=== PATIENT | male | born 2005 | race Caucasian/White ===

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

== ENCOUNTER 2024-04-25 08:52 | Emergency (ER) | payer OTHER, MEDICAID ==
[~2024-04-25] VITALS: Ht 160 cm; Wt 84.7 kg
[2024-04-25 09:38] VITALS: TEMP 99.5
[2024-04-25 09:43] VITALS: BP 134/78
[2024-04-25 10:00] VITALS: PULSE 99; RESP 18; O2SAT 98
[2024-04-25] MEDS ORDERED: IBUP-1456 PO (10:06)
[2024-04-25] MEDS ORDERED: AMOX875T3 PO (10:06)
== END 2024-04-25 10:25 | disposition home or self-care (01) ==
LOC: ER 08:52
DX: H65.192 Other acute nonsuppurative otitis media, left ear (principal); Z79.899 Other long term (current) drug therapy

== ENCOUNTER 2025-03-27 22:24 | Emergency (ER) | payer OTHER, MEDICAID ==
[~2025-03-27] VITALS: Ht 157.5 cm; Wt 79.5 kg
[~2025-03-27 22:24] MED LIST: AMOX875T3 PO; IBUP-1456 PO
[2025-03-27] MEDS: IPRATROPIUM BROM 0.5 MG/2.5ML INH SOL NEB ONE (23:14)
[2025-03-27] MEDS: ALBUTEROL SULF 2.5 MG/0.5ML(0.5%) NEB SOLN NEB ONE (23:14)
--- NOTE | 2025-03-27 23:59 | ED.PDOC ---
History of Present Illness HPI Comments 20-year-old male who presents to the emergency department with chest tightness ongoing since this morning. Patient reports he was exposed to some particulate dust at work while taking. He has a history of asthma. Had an asthma inhaler in the past 6-7 months. He used he will epinephrine bronchodilator with mild relief of his symptoms today. He has some shortness of breath. He is denying any chest pain, lightheadedness, dizziness. He has sore throat, throat irritation and cough. No Rhinorrhea, congestion, headache, blurred vision. REVIEW OF SYSTEMS: General: No fever, no chills, or fatigue HEENT: Positive sore throat, no earache, no congestion, no neck pain. Cardiac: No chest pain. No palpitations. Lungs: Positive shortness of breath, positive cough. GI: No nausea, no vomiting, no diarrhea, no constipation, no abdominal pain : No dysuria, frequency, or urgency. No hematuria. Musculoskeletal: Positive right wrist pain Skin: No rash, no itching. Neuro: No headache, no dizziness, no weakness PHYSICAL EXAM: General: Awake, alert and oriented. No acute distress. Skin: Skin in warm, dry and intact. Appropriate color for ethnicity. HEENT: The head is normocephalic and atraumatic. Conjunctivae are clear without exudates or hemorrhage. Sclera is non-icteric. EOM are intact. No signs of nystagmus. Eyelids are normal in appearance without swelling or lesions. Oral mucosa is pink and moist Neck: The neck is supple with normal range of motion. No JVD. Cardiac: Heart rate and rhythm are normal. No murmurs, gallops, or rubs are auscultated. Respiratory: No signs of respiratory distress. Lung sounds are clear in all lobes bilaterally without rales, rhonchi, or wheezes. Abdominal: Abdomen is soft, non-tender without distention, guarding or rigidity. Bowel sounds are present and normoactive in all four quadrants. Extremities: Upper and lower extremities are atraumatic in appearance without deformity or edema. Neurological: The patient is awake, alert and oriented to person, place, and time with normal speech. Speech is clear. There is no facial asymmetry. Normal gait Psychiatric: Appropriate mood and affect. Good judgement and insight. Chief Complaint: Asthma Time Seen by MD: 22:36 Primary Care Provider: UNK Allergies: Coded Allergies: NO KNOWN ALLERGIES (Unverified , 01/14/22) Home Meds Active Scripts Prednisone (Prednisone) 20 Mg Tab, 20 MG PO DAILY for 4 Days, #4 MG Prov:EMELI BUCKNER MD 03/28/25 Albuterol Sulfate (VENTOLIN MDI) 90 Mcg Ih, 90 MCG IN Q4HPRN PRN for 5 Days, #1 INH Prov:EMELI BUCKNER MD 03/28/25 Ibuprofen (Ibuprofen) 800 Mg Tab, 1 TAB PO TID, #24 TAB Prov:ELIECER DUNCAN 04/25/24 Amoxicillin Trihydrate (Amoxicillin) 875 Mg Tab, 1 TAB PO BID, #20 TAB Prov:ELIECER DUNCAN 04/25/24 Mode of Arrival: Ambulatory Past Medical History PAST MEDICAL HISTORY: Denies Surgical History: Denies all surgeries Family History Family History: Reviewed,noncontributory to illness Social History Smoker: Non-Smoker Alcohol: Denies ETOH Use Drugs: Denies Drug Use Was a procedure done? Was a procedure done?: No Differential Dx Considerations may include: Differential diagnoses considered include acute ischemic coronary syndrome, aortic dissection, cardiac tamponade, mediastinitis, pulmonary embolus, pneumothorax, tension pneumothorax, esophageal rupture, coronary artery vasospasm, myocarditis, pericarditis, pneumonia, pulmonary edema, esophageal tear, pancreatitis, aortic stenosis, dilated cardiomyopathy, hypertrophic cardiomyopathy, mitral valve prolapse, malignancy, pleuritis, pneumomediastinum, primary pulmonary hypertension, cholecystitis, esophageal spasm, esophagus, gastritis, GERD, peptic ulcer disease, costochondritis, fibromyalgia, rib fracture, herpes zoster, radicular syndromes, thoracic outlet syndrome, somatization. X-Ray, Labs, Meds, VS Vital Signs Date Time Temp Pulse Resp B/P (MAP) Pulse Ox O2 Delivery O2 Flow Rate FiO2 03/28/25 02:34 16 96 Room Air* 0 03/28/25 02:15 94 Room Air* 0 03/28/25 02:15 97.8 78 18 129/78 (95) 94 97.8 03/27/25 23:18 16 96 Room Air* 0 03/27/25 22:25 98.2 76 20 133/77 98 98.2 Time of 1ST Reevaluation: 23:57 Reevaluation 1ST: Improved Patient Education/Counseling: Need For Follow Up Family Education/Counseling: No Family Present SEPSIS Sepsis Screen Date sepsis recognized/suspect: Mar 27, 2025 Time Sepsis recognized/suspect: 2228 Recent Procedure: No On Antibiotic Therapy: No Respiratory Rate >20: No Heart Rate >90: No Temp<36 C (96.8 F) or >38.3 C: No SBP <90 or MAP <65 mmHG: No New Acute Mental Status Change: No Is the patient on CPAP, BIPAP,: No Physician Orders Chest Xray 1 View (03/27/25 22:46) Rapid Strep Screen - Throat (03/27/25 23:48) Vital Signs Date Time Temp Pulse Resp B/P (MAP) Pulse Ox O2 Delivery O2 Flow Rate FiO2 03/28/25 02:34 16 96 Room Air* 0 21 03/28/25 02:15 94 Room Air* 0 21 03/28/25 02:15 97.8 78 18 129/78 (95) 94 97.8 03/27/25 23:18 16 96 Room Air* 0 21 03/27/25 22:25 98.2 76 20 133/77 98 98.2 Departure 1 Departure Time of Disposition: 23:57 Impression: Primary Impression: Chest tightness Additional Impression: Asthma Disposition: HOME / SELF CARE / HOMELESS Condition: Stable Additional Instructions: ED DISCHARGE INSTRUCTIONS Instructions: Please read all instructions provided in this packet carefully. Although you have been discharged from the Emergency Department, this does not mean that you have a "clean bill of health". No definitive diagnosis for your symptoms has been made today. It is possible that you are in the process of developing a serious illness. This is why you must return to the ED without fail if any new or worsening symptoms (especially if your symptoms include chest pain, trouble breathing, abdominal pain, fever, headache, confusion, trouble seeing, or trouble walking) It is also very important that you see a primary care provider (PCP) within the next 3-5 days to follow up. If you are unable to get an appointment, return to the ED for re-evaluation. SHORTNESS OF BREATH EDUCATION Shortness of breath has many causes. Sometimes conditions such as anxiety can lead to shortness of breath. Some people get mild shortness of breath when they exercise. Trouble breathing also can be a symptom of a serious problem, such as asthma, lung disease, emphysema, heart problems, and pneumonia. If your shortness of breath continues, you may need tests and treatment. Watch for any changes in your breathing and other symptoms. Follow-up care is a walker part of your treatment and safety. Be sure to make and go to all appointments, and call your doctor if you are having problems. It's also a good idea to know your test results and keep a list of the medicines you take. How can you care for yourself at home? Do not smoke or allow others to smoke around you. If you need help quitting, talk to your doctor about stop-smoking programs and medicines. These can increase your chances of quitting for good. Get plenty of rest and sleep. Take your medicines exactly as prescribed. Call your doctor if you think you are having a problem with your medicine. Find healthy ways to deal with stress. Exercise daily. Get plenty of sleep. Eat regularly and well. When should you call for help? Call 911 anytime you think you may need emergency care. For example, call if: You have severe shortness of breath. You have symptoms of a heart attack. These may include: Chest pain or pressure, or a strange feeling in the chest. Sweating. Shortness of breath. Nausea or vomiting. Pain, pressure, or a strange feeling in the back, neck, jaw, or upper belly or in one or both shoulders or arms. Lightheadedness or sudden weakness. A fast or irregular heartbeat. After you call 911, the radiophone operator may tell you to chew 1 adult-strength or 2 to 4 low-dose aspirin. Wait for an ambulance. Do not try to drive yourself. Call your doctor now or seek immediate medical care if: Your shortness of breath gets worse or you start to wheeze. Wheezing is a high- pitched sound when you breathe. You wake up at night out of breath or have to prop your head up on several pillows to breathe. You are short of breath after only light activity or while at rest. Watch closely for changes in your health, and be sure to contact your doctor if: You do not get better over the next 1 to 2 days. Credits for Shortness of Breath: Care Instructions Current as of: March 27, 2024 Author: [employer] Staff e-Prescriptions Prednisone (Prednisone) 20 Mg Tab 20 MG PO DAILY for 4 Days, #4 MG Prov: EMELI BUCKNER MD 03/28/25 Albuterol Sulfate (VENTOLIN MDI) 90 Mcg Ih 90 MCG IN Q4HPRN PRN for 5 Days, #1 INH Prov: EMELI BUCKNER MD 03/28/25 Comments 20-year-old male with history of asthma and shortness of breath after exposure to dust. Patient improved with bronchodilator in the ED. CXR shows no acute process. Patient improved at time of discharge. Patient has not been hypoxic, in respiratory distress or dyspneic during the ED observation. Patient able to ambulate without difficulty. Patient felt stable for discharge to follow up with PCP promptly. Patient advised to return to the ED with any new, worsening or concerning symptoms or inability to follow up with PCP. Critical Care Note Critical Care Time?: No Stability Stability form required: No EMELI BUCKNER MD Mar 27, 2025 23:59
--- NOTE | 2025-03-28 00:40 | DVH ---
CHEST RADIOGRAPH Indication: asthma exacerbation Technique: Single frontal view of the chest was obtained COMPARISON: None FINDINGS: Lines and Tubes: None Lungs: Clear Pleura: No effusion. No pneumothorax. Cardiomediastinal contours: Unremarkable Bones: Unremarkable IMPRESSION: 1. No acute disease.
[2025-03-28] MEDS ORDERED: PRED20TA2 PO (00:45)
[2025-03-28] MEDS ORDERED: ALBUAER3 IN (00:45)
[2025-03-28 02:15] VITALS: BP 129/78; PULSE 78; TEMP 97.8; O2SAT 94
[2025-03-28] MEDS: predniSONE 20 MG TAB PO ONE (02:25)
[2025-03-28] MEDS: ALBUTEROL SULF 2.5 MG/0.5ML(0.5%) NEB SOLN NEB ONE (02:33)
[2025-03-28] MEDS: IPRATROPIUM BROM 0.5 MG/2.5ML INH SOL NEB ONE (02:33)
[2025-03-28 02:34] VITALS: RESP 16; O2SAT 96
== END 2025-03-28 02:54 | disposition home or self-care (01) ==
LOC: ER 22:24
DX: J45.901 Unspecified asthma with (acute) exacerbation (principal); Z79.1 Long term (current) use of non-steroidal anti-inflammatories (NSAID); Z79.899 Other long term (current) drug therapy
CPT/HCPCS: 71045; 94640; 99284; J7512

== ENCOUNTER 2025-08-25 08:53 | Emergency (ER) | payer OTHER, MEDICAID ==
[~2025-08-25] VITALS: Ht 157.5 cm; Wt 78.2 kg
[~2025-08-25 08:53] MED LIST changes: +ALBUAER3 IN; +PRED20TA2 PO
--- NOTE | 2025-08-25 09:39 | ED.PDOC ---
History of Present Illness HPI Comments 20 YR M w/ hx of asthma diagnosed approximately 11 years ago presents for work clearance after experiencing chest tightness, frontal headache described as pressing from the sides, cough, and a reported fever. The patient stated that these symptoms began worsening approximately 1 year before this visit, after a long period of quiescence. The fever occurred at its worst during a run, but most symptoms have improved significantly since then, with substantial resolution as of 1 day before this visit. The patient feels well enough to return to work and primarily requests a work note. Chief Complaint: Flu like Time Seen by MD: 09:30 Reviewed Notes: Nurses Notes, Medications, Allergies Information Source: Patient Mode of Arrival: Ambulatory Timing: Days Duration: Since onset, Days Prehospital treatment: None Severity: Moderate Fever: Questionable (101 Oral at home) Context: Recent: None Symptoms: Fever, Nasal symptoms Associated Signs and Symptoms: None Past Medical History PAST MEDICAL HISTORY: Denies Surgical History: Denies all surgeries Family History Family History: Reviewed,noncontributory to illness, Unknown Social History Smoker: Non-Smoker Alcohol: Denies ETOH Use Drugs: Denies Drug Use Lives In: Home Constitutional: Fever EENTM: Nose Congestion Respiratory: No Symptoms Reported Cardiovascular: No Symptoms Reported Gastrointestinal: No Symptoms Reported Genitourinary: No Symptoms Reported Neurological: No Symptoms Reported Musculoskeletal: No Symptoms Reported Integumentary: No Symptoms Reported Allergic/Immunocompromised: others Hematologic/Lymphatic: No Symptoms Reported Endocrine: No Symptoms Reported Psychiatric: No symptoms Reported All Other Systems: Reviewed and Negative Physical Exam General Appearance: No Apparent Distress, Normal HEENT: Normal ENT Inspection, Pharynx Normal, TMs Normal Neck: Full Range of Motion, Non-Tender, Normal, Normal Inspection Respiratory: Chest Non-Tender, Lungs Clear, No Accessory Muscle Use, No Respiratory Distress, Normal Breath Sounds Cardiovascular: No Edema, No JVD, No Murmur, No Gallop, Normal Peripheral Pulses, Regular Rate/Rhythm Breast Exam: Deferred Gastrointestinal: No Organomegaly, Non Tender, No Pulsatile Mass, Normal Bowel Sounds, Soft Genitalia: Deferred Pelvic: Deferred Rectal: Deferred Extremities: No calf tenderness, Normal capillary refill, Normal inspection, Normal range of motion, Non-tender, No pedal edema Musculoskeletal : Apperance: Normal Neurologic: Alert, 911 telecommunicator II-XII nml as Tested, No Motor Deficits, Normal Affect, Normal Mood, No Sensory Deficits Cerebellar Function: Normal Reflexes: Normal Skin: Dry, Normal Color, Warm Lymphatic: No Adenopathy Was a procedure done? Was a procedure done?: No Fever Differential Dx Differential Diagnosis: Viral Syndrome, Pharyngitis, Other X-Ray, Labs, Meds, VS Vital Signs Date Time Temp Pulse Resp B/P (MAP) Pulse Ox O2 Delivery O2 Flow Rate FiO2 08/25/25 10:10 82 16 98 Room Air 08/25/25 10:10 98.4 82 16 113/70 (84) 98 98.4 08/25/25 08:57 97.8 76 17 128/81 99 97.8 X-Ray, Labs, Meds, VS Comment This is a patient with a history of asthma presenting for work clearance after recent symptoms of chest tightness, frontal headache, cough, and fever, with significant improvement and near resolution of symptoms as of 1 day before this visit. Patient requests clearance to return to work following resolution of acute symptoms. -Provide work note for return to work. -Advised to follow up as needed. Additional MDM Review of External, Non-ED records: External records reviewed. Discussion with independent historian (EMS, family) history obtained from the patient/parents (if applicable) at bedside Chronic conditions affecting care: None Social determinants of health affecting care: None Consideration of admission (observation or admission): I considered escalation of care to admission for this patient, however given the reassuring workup, the patient is safe for outpatient management. Discussion with the Radiology: No Tests considered but not performed: Prescription medication considered but not given: Time of 1ST Reevaluation: 10:00 Reevaluation 1ST: Unchanged Patient Education/Counseling: Diagnosis, Treatment, Prognosis Family Education/Counseling: No Family Present SEPSIS Sepsis Screen Date sepsis recognized/suspect: Aug 25, 2025 Time Sepsis recognized/suspect: 0857 Recent Procedure: No On Antibiotic Therapy: No Respiratory Rate >20: No Heart Rate >90: No Temp<36 C (96.8 F) or >38.3 C: No SBP <90 or MAP <65 mmHG: No New Acute Mental Status Change: No Is the patient on CPAP, BIPAP,: No Vital Signs Date Time Temp Pulse Resp B/P (MAP) Pulse Ox O2 Delivery O2 Flow Rate FiO2 08/25/25 10:10 82 16 98 Room Air 08/25/25 10:10 98.4 82 16 113/70 (84) 98 98.4 08/25/25 08:57 97.8 76 17 128/81 99 97.8 Departure 1 Departure Time of Disposition: 10:08 Impression: Primary Impression: Viral syndrome Disposition: 01 HOME / SELF CARE / HOMELESS Condition: Stable e-Prescriptions Guaifenesin (Mucinex) 600 Mg Tab 1 TAB PO BID for 7 Days, #14 TAB 0 Refills Prov: DAGMAR BARRETO NP 08/25/25 Benzonatate (Benzonatate) 100 Mg Cap 1 CAP PO TID for 10 Days, #30 CAP 0 Refills Prov: DAGMAR BARRETO NP 08/25/25 Discharged With: Self Critical Care Note Critical Care Time?: No Stability Stability form required: No Heart Score Heart Score: Heart Score Response (Comments) Value History N/A 0 EKG N/A 0 Age N/A 0 Risk Factors N/A 0 Troponin N/A 0 Total 0 I personally scribed for DAGMAR BARRETO NP ([email or web address]) on 08/25/25 at 09:39. Electronically submitted by Terence Hines ([email or web address]). I personally scribed for DAGMAR BARRETO NP ([email or web address]) on 08/25/25 at 10:09. Electronically submitted by Terence Hines ([email or web address]). DAGMAR BARRETO NP Aug 25, 2025 09:39
[2025-08-25] MEDS ORDERED: GUAI600T78 PO (09:55)
[2025-08-25] MEDS ORDERED: BENZ100C97 PO (09:55)
[2025-08-25 10:10] VITALS: BP 113/70; PULSE 82; RESP 16; TEMP 98.4; O2SAT 98
== END 2025-08-25 10:28 | disposition home or self-care (01) ==
LOC: ER 08:58
DX: B34.9 Viral infection, unspecified (principal); J45.909 Unspecified asthma, uncomplicated; Z02.1 Encounter for pre-employment examination